=== PATIENT | male | born 1945 | race Caucasian/White ===

== ENCOUNTER 2018-11-12 09:08 | Outpatient (CLI) | payer MEDICARE ==
--- NOTE | 2018-11-12 10:02 | RAD ---
CHEST TWO VIEWS: HISTORY: Cough. FINDINGS: Heart size is borderline. No confluent pneumonia, overt edema, or pleural effusion. Atherosclerosis of the aorta. IMPRESSION: 1. Upper range of normal size heart. 3. No significant acute intrathoracic disease. 3. Atherosclerosis of the aorta. POS: [facility]
== END 2018-11-12 09:09 | disposition home or self-care (01) ==
LOC: RAD-FRANK 09:08
PROVIDERS: ATTEND Nurse Practitioner Family
DX: J20.9 Acute bronchitis, unspecified (principal); I70.0 Atherosclerosis of aorta
CPT/HCPCS: 71046